=== PATIENT | male | born 1945 | race Hispanic/Latino ===

== ENCOUNTER → 2023-06-01 | Outpatient (CLI) | payer OTHER, MEDICARE ==
[~2023-06-01] MED LIST: ASPI-556 PO; DOXY100C5 PO; ESOM40CA54 PO; METO-391 PO; RAMI10CA69 PO; REGADENOSON 0.4 MG/5 ML PF SYG IVP ONE; SIMV40TA59 PO
== END | disposition home or self-care (01) ==
LOC: SHCH 08:12
PROVIDERS: ATTEND Internal Medicine Cardiovascular Disease
DX: I25.810 Atherosclerosis of coronary artery bypass graft(s) without angina pectoris (principal); I45.10 Unspecified right bundle-branch block; R94.39 Abnormal result of other cardiovascular function study
CPT/HCPCS: 78452; 96374; 93017; J2785; A9500 ×2